=== PATIENT | male | born 1955 | race Asian ===

== ENCOUNTER 2023-04-24 08:16 | Emergency (ER) | payer OTHER, MEDICAID ==
[~2023-04-24] VITALS: Ht 162.6 cm; Wt 57.6 kg
[2023-04-24 08:33] VITALS: BP_SYST 134; PULSE 87; RESP 18; TEMP 97; O2SAT 98
--- NOTE | 2023-04-24 08:55 | NUR ---
Patient to ER bed H1 to gown for evaluation. Side rails up.
--- NOTE | 2023-04-24 09:00 | NUR ---
ER DR. RADFORD AT THE BEDSIDE EXAMINING PT
--- NOTE | 2023-04-24 09:56 | NUR ---
Patient given written and verbal discharge instructions and verbalizes understanding. SHRADDHA RADFORD MD discussed with patient the results and treatment provided. Patient in stable condition. ID arm band removed. Patient educated on pain management and to follow up with PMD. Pain Scale . Opportunity for questions provided and answered.
[2023-04-24] MEDS ORDERED: PROPARACAINE (OPTHANINE 0.5%) 15 ML DROPS OP ONE (10:30)
[2023-04-24] MEDS ORDERED: FLUORESCEIN SODIUM 1 MG OPHTHALMIC STRIP OP ONE ×2 (10:30→11:43)
[2023-04-24] MEDS ORDERED: BALANCED SALT IRRIG SOLN 15 ML IO ONE (11:43)
[2023-04-24] MEDS ORDERED: TETRACAINE HCL/PF 0.5% OPHTHALMIC DROPS 4 ML OP ONE (11:43)
== END 2023-04-24 09:56 | disposition home or self-care (01) ==
LOC: SED 08:16
DX: T15.01XA Foreign body in cornea, right eye, initial encounter (principal); Z79.899 Other long term (current) drug therapy; W45.8XXA Other foreign body or object entering through skin, initial encounter; Y93.89 Activity, other specified; Y92.89 Other specified places as the place of occurrence of the external cause; Y99.8 Other external cause status
CPT/HCPCS: 99284